=== PATIENT | female | born 1940 | race Two or more races ===

== ENCOUNTER 2024-04-14 09:27 | Outpatient (RCR) | payer MEDICARE, MEDICAID, SELFPAY ==
--- NOTE | 2024-04-20 01:11 | CTCCONSULT_ITS ---
Patient: ARELIS CURTIS : 1940 MR#: [id number] Page 2 of 3 CONSULTATION NOTE DATE OF CONSULTATION: 04/14/2024 NAME: ARELIS CURTIS ACCOUNT: [id number] : 1940 AGE: 83 REFERRING PHYSICIAN: Ivana Kvoacs MD PRIMARY PHYSICIAN: Ivana Kovacs MD REASON FOR VISIT: Leukocytosis HISTORY OF PRESENT ILLNESS: 83-year-old female with leukocytosis is referred here. Patient do not have any symptoms. Denies any recent infections or being sick. She is worried that if she has a blood cancer. OTHER MEDICAL HISTORY/CONDITIONS: 12/11/2023 WBC count 12.7 with neutrophils 9.3 lymphocytes monocytes and eosinophils normal FAMILY HISTORY: Father:?N/A Mother:?N/A Sibling:?N/A Children: Son from cancer at 59 years (unknown type) SOCIAL HISTORY: Marital?Status:? L[employer]ATING [employer]ER HISTORY: MEDICATIONS: 1. levothyroxine - 100 mcg 1 tab Daily 2. prednisone - 5 mg 1 tab As directed Medications Last Reconciled by Lita Medellin MA on 04/14/2024 ALLERGIES: REVIEW OF SYSTEMS: A complete 14-point review of systems was performed and is negative except as noted in interval histo ry. PHYSICAL EXAMINATION: VITAL SIGNS: Temperature?100.2, B/P?166/87, Oxygen?Saturation?94% PAIN: 0 - No pain ECOG Performance Status: 0 - Asymptomatic and fully active GENERAL APPEARANCE: Appears well, in no apparent distress, appropriately interactive. HEENT: Normocephalic, no temporal wasting, normal conjunctiva, no scleral icterus, normal hearing, li ps without lesions, neck normal range of motion. CARDIOVASCULAR: Not assessed. PULMONARY: Normal respiratory effort, no respiratory distress or use of accessory muscles, speaking i n full sentences, no tachypnea. EXTREMITIES: No pedal edema or cyanosis. SKIN: Normal skin appearance. NEUROLOGIC: Alert and oriented x4. PSHYCHIATRIC: Appropriate affect, mood normal, behavior normal, intact thought and speech. LABORATORY DATA: I have personally reviewed and interpreted each of Ms. Curtis?s relevant lab tests, abnormal findin gs are below: Date I reviewed labs on 12/14/2023 TSH less than 0.005 T41.65 Next WBC 12.7 hemoglobin 11.1 hematocrit 35.2 MCV 92 RDW 13.7 platelets 34 2 neutrophils 9.3 lymphocytes 2.2 monocytes 0.6 urine analysis was negative creatinine 0.84 sodium 14 1 albumin 4.4 bilirubin 0.3 alk phos normal at 97 AST normal 21 ALT normal 16 cholesterol total high at 271 HDL 49 LDL high at 149 Urine negative for nitrites microscopic examination showed RBCs but no bacteria SCV negative PTH inta ct 48 normal hemoglobin A1c 5.9 high vitamin D low at 12.3 magnesium 2.5 Labs on 03/12/2023 WBC 13.7 neutrophils 9.1 monocytes 1.0 high eosinophil 0.5 high urinalysis negative ASSESSMENT/PLAN: #1 leukocytosis 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 Curtis that she lives unlikely to have cancer as hide she had a mildly elevated neutro phils Ordered flow cytometry to see if patient has any abnormal cells Will repeat blood work #2 vitamin D deficiency Advised to take vitamin D3 5000 international units daily with fatty food Patient may have severe osteoporosis and the risk for fracture Patient will like to follow-up with primary care or her investor relations associate as she also follows for her t hyroid problem Advised to follow-up with the primary care or investor relations associate ORDERS: CBC CMP flow cytometry ordered RETURN TO CLINIC: I will see her back in the clinic in 2 months. BILLING AND COMPLIANCE: I reviewed external records from providers outside my specialty as summarized above. I spent a total of 50 minutes on this patient?s care on the day of their visit excluding time spent related to any bi lled procedures. This time includes time spent with the patient as well as time spent documenting in the medical record, reviewing patients records and tests, obtaining history, placing orders, communi cating with other healthcare professionals, counseling the patient, family or caregiver, and/or care coordination for the diagnoses above. Electronically Signed by: {Object.Sanct_ID*PnP.NameFL@M}, {Object.Sanct_ID*PnP.Suffix@U} D: {Object.Sanct_Date} T: {Object.Sanct_Time} CC: PCP: Ivana Kovacs Referring: Ivana Kovacs This document was completed utilizing speech recognition software. Grammatical errors, random word in sertions, pronoun errors, and incomplete sentences are an occasional consequence of this system due t o software limitations, ambient noise, and hardware issues. Any formal questions or concerns about th e content, text or information contained within the body of this dictation should be directly address ed to the provider for clarification.
== END 2024-04-22 23:59 | disposition home or self-care (01) ==
LOC: SCTC 09:27
PROVIDERS: PCP Physician Assistant; Referring Provider Nurse Practitioner Family; Visit Provider Internal Medicine Hematology & Oncology
DX: D72.829 Elevated white blood cell count, unspecified (principal); E55.9 Vitamin D deficiency, unspecified
CPT/HCPCS: 99204; G0463

== ENCOUNTER 2024-05-19 11:14 | Outpatient (RCR) | payer MEDICARE, MEDICAID, SELFPAY | END 2024-05-23 23:59 | disposition home or self-care (01) | LOC: SCTC 11:14 | PROVIDERS: PCP Physician Assistant; Referring Provider Physician Assistant; Visit Provider Nurse Practitioner Family | DX: Z09 Encounter for follow-up examination after completed treatment for conditions other than malignant neoplasm (principal); Z86.2 Personal history of diseases of the blood and blood-forming organs and certain disorders involving the immune mechanism; E55.9 Vitamin D deficiency, unspecified | CPT/HCPCS: 99212; G0463 ==

== ENCOUNTER 2024-08-26 12:50 | Outpatient (RCR) | payer MEDICARE, MEDICAID, SELFPAY | END 2024-09-20 23:59 | disposition home or self-care (01) | LOC: SCTC 12:50 | PROVIDERS: PCP Physician Assistant; Referring Provider Nurse Practitioner Family; Visit Provider Nurse Practitioner Family | DX: D72.829 Elevated white blood cell count, unspecified (principal); C44.509 Unspecified malignant neoplasm of skin of other part of trunk; C44.601 Unspecified malignant neoplasm of skin of unspecified upper limb, including shoulder | CPT/HCPCS: 99212; G0463 ==

== ENCOUNTER 2024-10-06 14:28 | Outpatient (RCR) | payer MEDICARE, MEDICAID, SELFPAY | END 2024-10-20 23:59 | disposition home or self-care (01) | LOC: SCTC 14:28 | PROVIDERS: PCP Physician Assistant; Referring Provider Physician Assistant; Visit Provider Nurse Practitioner Family | DX: D72.829 Elevated white blood cell count, unspecified (principal); L98.9 Disorder of the skin and subcutaneous tissue, unspecified; E53.8 Deficiency of other specified B group vitamins | CPT/HCPCS: 99212; G0463 ==